=== PATIENT | male | born 1955 | race Caucasian/White ===

== ENCOUNTER 2016-07-23 01:16 | Inpatient (IN) ==
--- NOTE | 2016-07-23 01:28 | EKG Report ---
Test Performed on : 07/23/2016 01:15:24 AM Test Reason : emboli Blood Pressure : / mmHG Vent. Rate : 059 BPM Atrial Rate : 059 BPM P-R Int : 142 ms QRS Dur : 094 ms QT Int : 444 ms P-R-T Axes : 030 027 019 degrees QTc Int : 439 ms Sinus bradycardia. Nonspecific ST abnormality Abnormal ECG No previous ECGs available Unconfirmed Result
[2016-07-23 01:30] LABS: BE 8.2 mmoll (-3.0-3.0); BLOOD TYPE ARTERIAL; DRAW SITE R RADIAL; METHB 1.4 % (0.0-1.5); O2(CT) 21.5 mL/dL (15.0-23.0); PO2(98.6) 525 mmHg (60-100); SAMPLE BLOOD; SAO2 99.9 % (95.0-100.0); THB 16.1 g/dL (11.5-17.4); pH(98.6) 7.43 (7.35-7.45)
[2016-07-23 01:35] LABS: PCO2(98.6) 52 mmHg (35-45)
[2016-07-23 01:36] LABS: ALLEN TEST YES; MODALITY BI PAP
[2016-07-23 01:40] LABS: MANUAL DIFF NEEDED? NO
[2016-07-23 01:43] LABS: BASO% 0.5 % (0.0-0.8); EOS# 0.52 X1000 (0.0-0.7); EOS% 6.1 % (0.0-10.0); HEMATOCRIT 42.9 % (42.0-52.0); HEMOGLOBIN 15.3 g/dL (14.0-18.0); IMM GRAN# 0.01 X1000 (0.0-0.04); IMM GRAN% 0.1 % (0.0-0.5); LYMPH# 3.07 X1000 (1.2-3.4); LYMPH% 36.1 % (20.5-51.1); MCH 32.5 PG (27-31); MCHC 35.7 g/dL (33-37); MCV 91.1 FL (81-99); MONO# 1.01 X1000 (0.11-0.59); MONO% 11.9 % (1.7-9.3); MPV 9.2 FL (7.4-10.4); NEUT% 45.3 % (42.2-75.2); PLT 198 X1000 (130-400); RBC 4.71 XMIL (4.7-6.1)
[2016-07-23 01:59] LABS: AGAP 10; ALKALINE PHOSPHATASE 68 U/L (32-122); BUN 9 mg/dL (8-22); CALCIUM 9.2 mg/dL (8.8-10.2); CHLORIDE 90 mmol/L (98-107); CK PROFILE 64 U/L (24-204); COSMO 267; GOT 24 U/L (10-34); GPT 18 U/L (10-44); POTASSIUM 3.5 mmol/L (3.5-5.1); SODIUM 134 mmol/L (136-145); TCO2 34 mmol/L (25-35); TOTAL PROTEIN 7.2 g/dL (6.3-8.3)
[2016-07-23 02:14] LABS: UR AMPHETAMINES QUAL NONE DETECTED (NONE DETECT); UR BARBITUATES QUAL NONE DETECTED (NONE DETECT); UR BENZODIAZEPIN QUAL NONE DETECTED (NONE DETECT); UR CANNABINOIDS QUAL PRESUMPTIVE POSITIVE (NONE DETECT); UR COCAINE QUAL NONE DETECTED (NONE DETECT); UR MDMA QUAL NONE DETECTED (NONE DETECT); UR METHADONE QUAL NONE DETECTED (NONE DETECT); UR METHAMPHETAMINE QUAL NONE DETECTED (NONE DETECT); UR OPIATES QUAL PRESUMPTIVE POSITIVE (NONE DETECT); UR OXYCODONE QUAL PRESUMPTIVE POSITIVE (NONE DETECT); UR PCP QUAL NONE DETECTED (NONE DETECT); UR TCA QUAL NONE DETECTED (NONE DETECT)
[2016-07-23 03:51] LABS: BE 9.1 mmoll (-3.0-3.0); BLOOD TYPE ARTERIAL; DRAW SITE R RADIAL; METHB 1.4 % (0.0-1.5); O2(CT) 20.9 mL/dL (15.0-23.0); PO2(98.6) 282 mmHg (60-100); SAMPLE BLOOD; THB 15.7 g/dL (11.5-17.4); pH(98.6) 7.34 (7.35-7.45)
[2016-07-23 04:06] LABS: PCO2(98.6) 71 mmHg (35-45)
[2016-07-23 04:07] LABS: ALLEN TEST YES; MODALITY NRB
[2016-07-23] MEDS ORDERED: NS 1,000 ML IV ONE ×2 (04:37→14:53)
--- NOTE | 2016-07-23 04:57 | EKG Report ---
Test Performed on : 07/23/2016 04:40:25 AM Test Reason : hypotension Blood Pressure : / mmHG Vent. Rate : 054 BPM Atrial Rate : 054 BPM P-R Int : 138 ms QRS Dur : 102 ms QT Int : 486 ms P-R-T Axes : 038 047 043 degrees QTc Int : 460 ms Sinus bradycardia. Otherwise normal ECG When compared with ECG of 23-JUL-2016 01:15, (Unconfirmed) No significant change was found Unconfirmed Result
--- NOTE | 2016-07-23 07:03 | Diag Imaging Result Document ---
PROCEDURE NAME: HEAD W/O CONTRAST - 07/23/2016 CT BRAIN WITHOUT CONTRAST: TECHNIQUE: Dose-reduction protocol. FINDINGS: No parenchymal hemorrhage. No epidural or subdural hematoma. No subarachnoid hemorrhage. No mass identified on this noncontrasted exam. No hydrocephalus. There is mild mucosal thickening in the frontal, ethmoid, and sphenoid sinuses. The right middle cerebral artery is hyperdense compared to the left. No acute infarct identified. IMPRESSION: 1. No hemorrhage. 2. Hyperdense right middle cerebral artery. This can be associated with acute thrombosis. Further evaluation with CT or MR angiography may be beneficial. 3. Mild sinusitis. A preliminary report was given at 2:11 a.m.
--- NOTE | 2016-07-23 07:36 | Diag Imaging Result Document ---
PROCEDURE NAME: CHEST-PORTABLE - 07/23/2016 PORTABLE CHEST X-RAY: COMPARISON: None. FINDINGS: The lungs are normally expanded and clear. Heart size and mediastinal contours are normal. No pneumothorax or pleural effusion. IMPRESSION: Negative exam.
[2016-07-23 09:49] LABS: BE 8.2 mmoll (-3.0-3.0); BLOOD TYPE ARTERIAL; DRAW SITE R BRACHIAL; METHB 1.5 % (0.0-1.5); PO2(98.6) 82 mmHg (60-100); SAMPLE BLOOD; SAO2 97.9 % (95.0-100.0); THB 16.2 g/dL (11.5-17.4); pH(98.6) 7.35 (7.35-7.45)
[2016-07-23 09:51] LABS: ALLEN TEST NO; MODALITY BI PAP
[2016-07-23 09:53] LABS: PCO2(98.6) 67 mmHg (35-45)
--- NOTE | 2016-07-23 09:57 | PROGRESS NOTE ---
DATE: 07/23/2016 SUBJECTIVE: Today Mr. Jain continues to be critical. He was admitted last night apparently after they found him unresponsive together with the girlfriend who had to be transferred across town; she is currently intubated. As for Mr. Jain, he was evaluated over here and was admitted to the ICU because he continued to be altered. OBJECTIVE: Vital Signs: Blood pressure is 97/66, pulse is 58, respirations 16, temperature is 97.3 degrees. General exam: Mr. Jain a 60-year-old male. He was in bed and did not seem to be in any distress. HEENT: Mucosa is pink and moist. Anicteric. Acyanotic. Neck: Supple. I did not see any JVD. Chest: Air entry is bilaterally reduced. No crepitations. No rhonchi. Cardiovascular: Regular rate and rhythm. There are no murmurs, no rubs, no gallops. Abdomen: Soft. Extremities: No pedal edema. There is some slightly coldness in the left; the right has an AKA. 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 Will only open his eyes. Does not follow any commands, but moves his extremities. LABORATORY DATA: WBC is 8.51 hemoglobin is 15.3, platelet count of 198. Chemistry: Sodium is 134, potassium is 3.5, chloride is 90, bicarbonate is 34. Troponins have all been negative. ABG: The pH is 7.34, pCO2 is 71, PaO2 is 282. Carboxyhemoglobin is 6.70. ASSESSMENT: 1. Altered mental status secondary to acute metabolic encephalopathy from recreational drug abuse. 2. Recreational poly drug abuse. The patient's toxicology was positive for opioids, OxyContin and cannabinoids. 3. Acute hypercarbic and hypoxemic respiratory failure, likely due to drug side effects. 4. Carboxyhemoglobinemia consistent with continuing active tobacco use. PLAN: So, in general we will continue supportive care. We will repeat the ABGs for this morning, and make the pertinent changes accordingly. We will continue with the IV hydration and supportive care until his mentation improves. cc: Octaviano Serrano MD
[2016-07-23] MEDS: NS 1,000 ML IV SCH ×4 (10:34→23:31)
[2016-07-23 10:54] LABS: BILIRUBIN URINE NEGATIVE (NEGATIVE); BLOOD URINE TRACE (NEGATIVE); CLARITY CLEAR (CLEAR); COLOR YELLOW; GLUCOSE URINE NEGATIVE (NEGATIVE); LEUKOCYTES URINE NEGATIVE (NEGATIVE); NITRITE URINE NEGATIVE (NEGATIVE); PROTEIN URINE TRACE mg/dL (NEGATIVE); SP GRAVITY URINE 1.005; UROBILINOGEN URINE NORMAL
[2016-07-23 11:05] LABS: URINE CULTURE PL NEEDED? YES; URINE EPITHELIAL CELLS <10 /HPF (<10); URINE RBC <10 /HPF (<10); URINE SOURCE CATH; URINE WBC <10 /HPF (<10)
[2016-07-23] MEDS ORDERED: NS 500 ML IV ONE (13:33)
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
[2016-07-23] MEDS: HALDOL IV PRN (18:53)
[2016-07-24] MEDS: HALDOL IV PRN ×4 (01:51→21:21)
[2016-07-24 06:09] LABS: MANUAL DIFF NEEDED? NO
[2016-07-24] MEDS: NS 1,000 ML IV SCH (06:30)
[2016-07-24 06:44] LABS: BASO% 0.3 % (0.0-0.8); EOS# 0.24 X1000 (0.0-0.7); EOS% 3.7 % (0.0-10.0); HEMATOCRIT 37.4 % (42.0-52.0); HEMOGLOBIN 12.6 g/dL (14.0-18.0); IMM GRAN# 0.01 X1000 (0.0-0.04); IMM GRAN% 0.2 % (0.0-0.5); LYMPH# 1.59 X1000 (1.2-3.4); LYMPH% 24.2 % (20.5-51.1); MCH 31.7 PG (27-31); MCHC 33.7 g/dL (33-37); MONO# 0.64 X1000 (0.11-0.59); MONO% 9.8 % (1.7-9.3); MPV 9.8 FL (7.4-10.4); NEUT% 61.8 % (42.2-75.2); PLT 138 X1000 (130-400); RBC 3.98 XMIL (4.7-6.1)
[2016-07-24 07:00] LABS: AGAP 8; BUN 13 mg/dL (8-22); CALCIUM 8.3 mg/dL (8.8-10.2); CHLORIDE 103 mmol/L (98-107); COSMO 275; POTASSIUM 3.4 mmol/L (3.5-5.1); SODIUM 138 mmol/L (136-145); TCO2 27 mmol/L (25-35)
[2016-07-24] MEDS ORDERED: APRESOLINE IV PRN (08:21)
[2016-07-24] MEDS ORDERED: MS CONTIN PO ONE (08:23)
[2016-07-24] MEDS: PRINIVIL PO SCH (08:50)
[2016-07-24] MEDS ORDERED: APRESOLINE PO SCH ×2 (13:00)
[2016-07-24] MEDS ORDERED: MYLICON PO PRN (14:35)
--- NOTE | 2016-07-24 15:02 | Diag Imaging Result Document ---
PROCEDURE NAME: MRI BRAIN W/O CONTRAST - 07/24/2016 MRI BRAIN WITHOUT. TECHNIQUE: Axial, sagittal, and coronal images obtained in multiple sequences. FINDINGS: No recent infarct. No significant microvascular ischemic changes. No mass or midline shift. No hydrocephalus. No epidural or subdural fluid collection. There is mild mucosal thickening in the frontal, ethmoid, and maxillary sinuses. No sinus opacification or air-fluid levels. IMPRESSION: 1. No recent infarct. 2. Minimal sinusitis.
--- NOTE | 2016-07-24 15:05 | Diag Imaging Result Document ---
PROCEDURE NAME: MRA BRAIN W/O CONTRAST - 07/24/[address] [facility]. MIP IMAGES OBTAINED. FINDINGS: There is normal flow in each distal internal carotid artery with filling of the middle cerebral arteries. 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 The left anterior cerebral artery receives its flow from the right. Normal flow filling each anterior cerebral artery. Small basilar artery. The posterior cerebral arteries receive the majority of their flow from posterior communicating arteries. No aneurysm. IMPRESSION: 1. 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 2. Small basilar artery with the posterior cerebral arteries receiving the majority of their flow from posterior communicating arteries.
[2016-07-24] MEDS ORDERED: ATIVAN IV PRN (21:40)
--- NOTE | 2016-07-24 23:48 | PROGRESS NOTE ---
DATE: 07/24/2016 SUBJECTIVE: This patient is completely alert and oriented x3. He is now complaining of shortness of breath, chest pain, headache. I will start this patient on a diet. This patient came in with altered mental status likely secondary to metabolic encephalopathy secondary to recreational drug abuse. As per the patient, he is just using some morphine and hydrocodone at home, and also clonazepam, but in the urine toxicology also showed cannabinoids, which he denies. OBJECTIVE: Vital Signs: Temperature 98.2 degrees, pulse 81, respiratory rate 15, blood pressure 191/108, O2 saturation 100% on room air. HEENT: Head normocephalic. No trauma. PERRLA. Neck: Supple. No JVD. No masses. Central trachea. Chest: Clear to auscultation. No wheezing. No rales. Abdomen: Soft, nontender, nondistended. No hepatosplenomegaly. Extremities: No edema. No clubbing. No cyanosis. He has a lower extremity amputation. Neurological: The patient is alert and oriented x3. No focal neurological deficits. LABORATORY: WBC 6.5, hemoglobin 12.6, hematocrit 37.4, platelets 138,000. Sodium 138, potassium 3.4, chloride 103, bicarbonate 27, BUN 13, creatinine 0.6, glucose 83, calcium 8.3. ASSESSMENT AND PLAN: 1. Altered mental status likely secondary to recreational drug abuse and polysubstance abuse, this patient is getting better. He is completely alert and oriented x3. No focal deficits. The plan is to transfer this patient to the regular floor to continue to monitor, he has been having high blood pressure. 2. Hypertension. The blood pressure has been elevated. I already stopped the normal saline and I started this patient on lisinopril and hydralazine, if this does not work I will increase the dose of lisinopril and I will start this patient on another antihypertensive medication. 3. Acute hypercapnic and hypoxemic respiratory failure. Resolved. 4. Rule out cerebral thrombosis. This patient will get an MRI. At this moment, we have a head CT that showed a hyperdense right middle cerebral artery that could be associated with acute thrombosis but he is not showing any signs or symptoms of stroke at this moment. 5. Hypokalemia. We will replace the potassium. CRITICAL CARE TIME: Thirty-five minutes. cc: Armen Kiser MD
[2016-07-25 08:06] VITALS: BP 150/78
[2016-07-25] MEDS: PRINIVIL PO SCH (08:54)
[2016-07-25] MEDS ORDERED: NORVASC PO SCH (09:00)
[2016-07-25] MEDS ORDERED: KLOR-CON PO SCH (09:00)
--- NOTE | 2016-07-25 17:52 | DISCHARGE SUMMARY ---
ADMISSION DATE: 07/23/2016 DISCHARGE DATE: 07/25/2016 ADMISSION DIAGNOSES: 1. Overdose. 2. Altered mental status secondary to an acute metabolic encephalopathy from recreational drug use. 3. Polysubstance abuse. 4. An acute hyperbaric and hypoxic respiratory failure. 5. Rule out cerebral thrombosis. DISCHARGE DIAGNOSES: 1. Altered mental status secondary to recreational drug abuse and polysubstance abuse improved. 2. Hypertension. 3. Rule out cerebral thrombosis. MRA negative and MRI negative brain SUMMARY OF FINDINGS: This is a 60-year-old male who was brought in to the ER via EMS after he was found at home unresponsive. There was no sign of CO2 poisoning per EMS. He was given 4 mg of Narcan en route with some response but then returned to responding only to painful stimuli. Placed on BiPAP. Systolic blood pressure in the 90s when he arrived to the emergency room though his blood pressure systolic jumped up to 230. Pupils were dilated. Was given Narcan again in the ED, opened his eyes momentarily. It was noted that his girlfriend was brought to [facility] ER with similar symptoms on the night of arrival. He was given a liter bolus of normal saline. Head CT showed no hemorrhage. Laboratory data showed his urine drug screen was presumptive positive for opiates, oxycodone and cannabinoids. He was initially admitted to the intensive care unit. His head CT showed a hypodense area in the right middle cerebral artery that could be associated with an acute thrombosis so we obtained a brain MRI that showed no recent infarct and minimal sinusitis, brain MRA that showed absence of the A-1 segment on the left, the small basilar artery with the posterior cerebral arteries receiving the majority of their flow from the posterior communicating arteries, no aneurysms. Blood pressure today is 150/78. He is saturating 97% on room air. It is felt that he can safely be discharged home. DISCHARGE MEDICATIONS: Norvasc 5 mg p.o. daily #30 with no refills, Klonopin 1 mg p.o. b.i.d., hydrocodone 10 one p.o. q.6 hours p.r.n., morphine sulfate ER 60 mg p.o. at bedtime 100 mg p.o. daily, trazodone 50 mg 3 tablets p.o. at bedtime. FOLLOWUP: He will need to obtain a primary care physician. Will provide him with physician referral line. TIME SPENT: 35 minutes. Dictated by MAIRA Villasenor for Armen Kiser MD cc: MAIRA Villasenor MD
--- NOTE | 2016-08-05 18:50 | PROVIDER DOCUMENTATION ---
This chart was entered by Jamee Pal Scribe, acting as scribe for Olman Cardoso MD. [facility]-Critical Care - General Chief Complaint: Unresponsive Stated Complaint: OVERDOSE Time Seen by Provider: 07/23/16 01:16 Patient arrived via EMS?: Yes Source: EMS Unable to obtain history due to:: other (unresponsive information provided by EMS) Allergies/Adverse Reactions: Allergies Allergy/AdvReac Type Severity Reaction Status Date / Time penicillin G Allergy Unknown Unknown Verified 07/23/16 06:30 Home Medications: Home Medication List Medication Instructions Recorded Confirmed Last Taken Type Clonazepam 1 tab PO BID PRN 07/23/16 07/23/16 Unknown History Hydrocodone/Acetaminophen 1 tab PO Q6H PRN 07/23/16 07/23/16 Unknown History [Hydrocodon-Acetaminophn 10-325] Morphine Sulfate [Morphine Sulfate 1 tab PO DAILY 07/23/16 07/23/16 Unknown History ER] Morphine Sulfate [Morphine Sulfate 1 tab PO HS 07/23/16 07/23/16 Unknown History ER] Trazodone [Desyrel] 3 tab PO HS 07/23/16 07/23/16 Unknown History Amlodipine [Norvasc] 5 mg PO DAILY #30 tablet 07/25/16 Unknown Rx LISINOpril [Prinivil] 10 mg PO DAILY #30 tablet 07/25/16 Unknown Rx - History of Present Illness-Critical Care Nature of Presenting Problem: 55 Y/O M presents to ED with unresponsive. Pt arrived via EMS. Found at home unresponsive, EMS states no signs of Co2 poising. Give 4 Narcan by EMS and some response, but will then return to painful stimulant. Pt was twitching on Bypap. EMS states Pt BP was 90 systolic. In ED pt BP was 230 systolic. Pt pupils are dilated. After first Narcan give in ED Pt developed chills briefly and eyes opened momentarily. Pt prescription bottles brought from home via EMS. Pt has another family member who was brought to [facility] with similar symptoms tonight. Severity in ED: reports: severe Onset/Duration: reports: this morning Timing: reports: still present EMS Initial Findings:: unresponsive EMS Initial HR: 70-120 EMS Initial BP: 90 Pre-hospital Treatment: Initiated other (narcan) Review of Systems - Adult - REVIEW OF SYSTEMS - ADULT ROS:: unobtainable per condition (unresponsive on arrival) Constitutional: denies: chills, fever Past History - Adult - PAST MEDICAL HISTORY-ADULT Review of Records: reports: Old Records Reviewed, Nursing Assessment Review, Medications Reviewed, Social history reviewed & non-contributory. - SOCIAL HISTORY Smoking: cigarettes, greater than 1 pack/day Living Situation: family Physical Exam-General - PHYSICAL EXAM-ADULT Initial Vital Signs Reviewed: Yes - CONSTITUTIONAL General Appearance: severe distress. negative: alert - HEAD, EARS, NOSE, MOUTH & THROAT HENMT: normocephalic/atraumatic, normal ENT inspection, TMs normal. negative: moist mucous membranes - CARDIOVASCULAR Cardiovascular: normal peripheral pulses, regular rate, rhythm - GASTROINTESTINAL (ABDOMEN) Abdominal Exam: normal bowel sounds, non tender, soft - MUSCULOSKELETAL Extremity: other (left leg BTK amputation) Progress - PLAN OF CARE/RESULTS Progress/Plan/Lab Results: Orders Category Date Time Status Admit - [facility] Routine AdmDCTranf 07/23/16 04:37 Ordered Neurological Check Q1h Care 07/23/16 04:37 Completed Vital Signs Order Q1H Care 07/23/16 04:37 Active CHEST-PORTABLE [RAD] Stat Exams 07/23/16 01:20 Completed HEAD W/O CONTRAST [CT] Stat Exams 07/23/16 01:37 Completed ABG [RESP] Routine Lab 07/23/16 01:25 Completed ABG [RESP] Routine Lab 07/23/16 03:33 Completed CBC WITH DIFF [HEME] Stat Lab 07/23/16 01:20 Completed CK PROFILE [SP CHEM] Stat Lab 07/23/16 01:20 Completed CK PROFILE [SP CHEM] Stat Lab 07/23/16 04:25 Completed COMPREHENSIVE METABOLIC PANEL [CHEM] Stat Lab 07/23/16 01:20 Completed TROPONIN T Stat Lab 07/23/16 01:20 Completed TROPONIN T Stat Lab 07/23/16 04:25 [address] DRUG SCREEN [address] Stat Lab 07/23/16 01:50 Completed 0.9% Sodium Chloride Inj [Ns] 1,000 ml Med 07/23/16 04:37 Discontinued IV 150 mls/hr BIPAP Stat Oth 07/23/16 05:43 Active Telemetry [OM.EQ] Routine Oth 07/23/16 04:37 Active EKG [EKG] Routine Ther 04/13/17 01:19 Draft EKG [EKG] Stat Ther 07/23/16 04:09 Draft Transfer/Admit Order [TRANSFER] Routine Transfer 07/23/16 04:41 Completed Result Diagrams: 07/24/16 04:50 07/24/16 04:50 - EKG 1 Time of EKG reading by physician:: 01:15 EKG Read and Signed by:: Olman Cardoso EKG Interpretation (*Must complete 3 of following elements*): Abnormal Rate: 59 Rhythm: Sinus Bradycardia Comments: Abnormal ECG Departure - Departure Time of Disposition Decision: 10:57 DIAGNOSIS: Accidental overdose Qualifiers: Encounter type: initial encounter Qualified Code(s): T50.901A - Poisoning by unspecified drugs, medicaments and biological substances, accidental ( unintentional), initial encounter Hypertension Qualifiers: Hypertension type: unspecified secondary hypertension Qualified Code(s): I15.9 - Secondary hypertension, unspecified; I15 - Secondary hypertension Disposition: ADMITTED INPATIENT 09 Certified Medical Emergency: Emergent Condition: Serious - Critical Care Note This patient required my direct personal management.: Yes Total Time (mins): 30 Critical Care Statement: This patient required my direct personal management to treat or rule out processes, the absence of which, could potentiallly result in sudden, clinically significant life or limb threatening deterioration. This chart was documented by the indicated scribe, (Jamee Pal Scribe) and accurately reflects the services I performed and decisions made by me, Olman Cardoso MD, as attested by the provider's signature.
== END 2016-07-25 11:12 | disposition home or self-care (01) ==
LOC: EDBD → P.ED 01:16 → P.ICU 04:54 → MERGE 04:54 → SUATTDRO 04:54 → P.MEDSURG 07-24 17:12
PROVIDERS: ATTEND Internal Medicine